=== PATIENT | female | born 1980 | race Caucasian/White ===

== ENCOUNTER 2020-02-13 11:45 | Emergency (ER) | payer BC ==
[~2020-02-13] VITALS: Ht 12.7 cm; Wt 94.1 kg
[2020-02-13] MEDS ORDERED: vit D3 (12:06)
[2020-02-13] MEDS ORDERED: MONT10TA4 PO (12:08)
[2020-02-13] MEDS ORDERED: HYDR-3363 PO (12:08)
[2020-02-13] MEDS ORDERED: SUMA50TA2 PO (12:08)
[2020-02-13] MEDS ORDERED: OMEP-312 PO (12:08)
[2020-02-13] MEDS ORDERED: ONDANSETRON 4MG/2ML VIAL IV ONE (12:30)
[2020-02-13] MEDS ORDERED: NS 1,000 ML IV ONE (12:30)
[2020-02-13 13:01] LABS: BASO % 0.4 % (0.0-1.0); EOS # 0.2 10^3/uL (0.0-0.5); EOS % 2.3 % (0.0-3.0); HEMATOCRIT 40.8 % (36.0-47.0); HEMOGLOBIN 13.5 g/dl (12.0-15.5); MEAN CORPUSCULAR HEMOGLOBIN 29.9 pg (27.0-33.0); MEAN CORPUSCULAR HGB CONC 33.1 g/dl (32.0-36.5); MEAN CORPUSCULAR VOLUME 90.5 fl (80.0-96.0); MONO # 0.6 10^3/uL (0.0-0.8); MONO % 7.2 % (0.0-5.0); NEUTROPHILS # 5.2 10^3/uL (1.5-8.5); NEUTROPHILS % 64.7 % (36.0-66.0); PLATELET COUNT, AUTOMATED 286 10^3/uL (150-450); RED BLOOD COUNT 4.51 10^6/uL (4.00-5.40)
--- NOTE | 2020-02-13 13:26 | REPVR ---
PROCEDURE INFORMATION: Exam: US Abdomen, Limited; Right Upper Quadrant Exam date and time: 02/13/2020 1:03 PM Age: 39 years old Clinical indication: Abdominal pain; Epigastric; Prior surgery; Surgery date: 6+ months; Surgery type: Gallbladder removed; Additional info: Right upper quadrant pain TECHNIQUE: Imaging protocol: US abdomen. Real time ultrasound with image documentation. Limited exam focused on the right upper quadrant. COMPARISON: No relevant prior studies available. FINDINGS: Liver: No hepatic mass is imaged. The imaged hepatic echotexture appears within normal limits. Gallbladder: The gallbladder is surgically absent. Common bile duct: No intrahepatic or extrahepatic bile duct dilation is imaged. Common bile duct diameter = 0.4 cm. Pancreas: The pancreas is incompletely visualized. The visualized portions of the pancreas are unremarkable. Right kidney: Right kidney length = 10 cm. Very mild dilation of the right renal pelvis and central calices. There are multiple 0.4-0.5 cm echogenic foci present at the right renal corticomedullary junction that do not demonstrate definitive posterior acoustic shadowing; these are nonspecific but may represent small renal calculi. Intraperitoneal space: No free intraperitoneal fluid is imaged. IMPRESSION: 1. Very mild right renal pelvicaliectasis. 2. Possible right nephrolithiasis. This could be further evaluated with renal stone study CT examination. Electronically signed by: Andrew Mares On 02/13/2020 13:25:49 PM
[2020-02-13 13:34] LABS: ALBUMIN 3.7 GM/DL (3.2-5.2); ALT/SGPT 26 U/L (12-78); AMYLASE 45 U/L (25-115); BILIRUBIN,DIRECT 0.1 MG/DL (0.0-0.2); BILIRUBIN,TOTAL 0.3 MG/DL (0.2-1.0); BLOOD UREA NITROGEN 8 MG/DL (7-18); CALCIUM LEVEL 9.2 MG/DL (8.5-10.1); CARBON DIOXIDE LEVEL 26 MEQ/L (21-32); CHLORIDE LEVEL 104 MEQ/L (98-107); CREATININE FOR GFR 0.95 MG/DL (0.55-1.30); GLOMERULAR FILTRATION RATE > 60.0 (>58); GLUCOSE, FASTING 90 MG/DL (70-100); LIPASE 77 U/L (73-393); POTASSIUM SERUM 4.2 MEQ/L (3.5-5.1); SODIUM LEVEL 137 MEQ/L (136-145); TOTAL PROTEIN 7.6 GM/DL (6.4-8.2)
--- NOTE | 2020-02-13 14:18 | REPVR ---
PROCEDURE INFORMATION: Exam: XR Abdomen, 1 View Exam date and time: 02/13/2020 2:04 PM Age: 39 years old Clinical indication: Abdominal pain; Localized; Right upper quadrant TECHNIQUE: Imaging protocol: XR of the abdomen. Views: Frontal supine view of the abdomen. 1 View. COMPARISON: No relevant prior studies available. FINDINGS: Gastrointestinal tract: Nonobstructive bowel gas pattern. Intraperitoneal space: Surgical clips project at the abdominal right upper quadrant. Organs: A 2 mm calcification projects at the right anatomic pelvis. No organomegaly is identified. Bones/joints: Degenerative appearing pubic symphyseal sclerosis. IMPRESSION: Nonspecific right pelvic 2 mm calcification. This could represent a vascular calcification or a right distal ureteral calculus. Electronically signed by: Andrew Mares On 02/13/2020 14:17:49 PM
[2020-02-13] MEDS ORDERED: ONDA4TAB6 PO (14:19)
[2020-02-13] MEDS ORDERED: DICY10CA13 PO (14:19)
[2020-02-13 14:30] VITALS: BP 140/63
== END 2020-02-13 14:34 | disposition home or self-care (01) ==
LOC: M ED 11:45
DX: R10.11 Right upper quadrant pain (principal); K21.9 Gastro-esophageal reflux disease without esophagitis; Z79.899 Other long term (current) drug therapy; Z88.0 Allergy status to penicillin
CPT/HCPCS: 74018; 76705; 80048; 80076; 82150; 83690; 85025; 96374; 99284; J2405